=== PATIENT | female | born 1945 | race Caucasian/White ===

== ENCOUNTER 2016-07-31 14:39 | Emergency (ER) | payer MEDICARE, OTHER ==
[2016-07-31 15:54] LABS: BASOPHIL 0 % (0-2); EOSINOPHIL 0 % (0-7); HCT 38.5 % (37.0-47.0); HGB 12.7 g/dl (12.5-16.0); LYMPHOCYTE 3.4 % (15-48); MCH 31.2 pg (25.0-31.0); MCV 94.6 fL (78.0-100.0); MONOCYTE 9.7 % (0-12); MPV 8.6 fL (6.0-9.5); NEUTROPHIL 86.9 % (41-80); PLT 203 K/uL (150-400); RBC 4.07 M/uL (4.20-5.40); RDW 15.3 % (11.5-14.0); WBC 7.6 K/uL (4.0-10.5)
[2016-07-31 16:04] LABS: INR 1.06 (0.9-1.2); PROTHROMBIN TIME 13.4 SECONDS (11.7-14.0); PTT 22.8 SECONDS (23.2-31.4)
[2016-07-31 16:11] LABS: ALBUMIN 3.5 g/dL (3.4-4.8); BILIRUBIN - TOTAL 0.2 mg/dL (0.1-1.0); CREATININE 0.5 mg/dL (0.5-1.0); GLOBULIN (CALCULATION) 2.6 g/dL (2.2-4.2); POTASSIUM 4.3 mmol/L (3.5-5.1); TOTAL PROTEIN 6.1 g/dL (6.4-8.3)
[2016-07-31 16:13] LABS: CKMB 1.32 ng/mL (0.97-4.94); MYOGLOBIN 21 ng/mL (26-65); TROPONIN T < 0.010 ng/mL
== END 2016-07-31 17:40 | disposition other institution (70) ==
LOC: FER 14:39
PROVIDERS: Emergency Medicine
DX: I62.9 Nontraumatic intracranial hemorrhage, unspecified (principal); R47.89 Other speech disturbances; R29.702 NIHSS score 2; Z98.890 Other specified postprocedural states; Z86.69 Personal history of other diseases of the nervous system and sense organs; Z85.118 Personal history of other malignant neoplasm of bronchus and lung
CPT/HCPCS: 36415; 70450; 71010; 80053; 80061; 82550; 82553; 83874; 84484; 85025; 85610; 85730; 93005; J2060

== ENCOUNTER 2020-05-06 07:38 | Inpatient (IN) | payer MEDICARE, OTHER ==
[~2020-05-06 07:38] MED LIST: ALLERGY RELIEF10 M1 PO; ASPIRIN EC81 MG PO; ATIVAN0.5 MG PO; BUMETANIDE1 MG PO; DIPHENOXYLATE-1 EACH PO; DUONEB 2.5-0.5M1 AMP NEB; FIBER LAXATIVE625 MG PO; HCTZ12.5 MG PO; IMDUR 30MG TABL30 MG PO; K-DUR20 MEQ PO; LOPRESSOR50 MG PO; LOVENOX40 MG/0.4 SC; MELATONIN5 M2 PO; MICON-GUARD 2% TOP; MUCINEX 600MG600 MG PO; PANTOPRAZOLE SO40 MG PO; POTASSIUM CHLO20 ME2 PO; PRILOSEC20 MG PO; PRINIVIL20 MG PO; PULMICORT0.5 MG/2 M NEB; SYNTHROID100 MCG PO; VITAMIN D1000 UNIT PO
[2020-05-06] MEDS ORDERED: PERCOCET 5-3251 EACH PO (08:42)
--- NOTE | 2020-05-06 15:45 | NUR ---
PT REPORTS HE LIVES WITH SPOUSE AND HAS OXYGEN AND IS ASSIST WITH ADL'S PER REPORT. PLEASE ADVISE OF ANY DISCHARGE NEEDS
[2020-05-07 08:09] LABS: BASOPHIL 0.4 % (0-2); EOSINOPHIL 1.3 % (0-7); HCT 31.1 % (37.0-47.0); HGB 9.6 g/dl (12.5-16.0); MCH 30.1 pg (25.0-31.0); MCHC 30.9 g/dL (32.0-36.0); MCV 97.5 fL (78.0-100.0); MONOCYTE 9.3 % (0-12); MPV 8.8 fL (6.0-9.5); NEUTROPHIL 81.8 % (41-80); NRBC 0; PLT 169 K/uL (150-400); RBC 3.19 M/uL (4.20-5.40); RDW 14.2 % (11.5-14.0); WBC 5.6 K/uL (4.0-10.5)
[2020-05-07 08:24] LABS: BUN/CREAT RATIO (CALC) 12.7 RATIO; CREATININE 0.55 mg/dL (0.51-0.95)
--- NOTE | 2020-05-07 10:38 | NUR ---
PT ELECTED TO HAVE [facility] FOR HOME HELATH AFFILIATIONS EXPLAINED. PT HAS ROLATOR AT HOME WILL NOT QUALIFY TO HAVE WALKER PAID FOR AT THIS TIME; EXPLAINED TO PATIENT THERAPY SUGGESTS THAT SHE HAS A REGULAR WALKER SHE AGREED TO RENT FROM [employer]. ALSO ORDERED FROM [employer] IS 3:1, W/C AND WALKER FOR RENT. THEY WILL DELIVER TO HOUSE FOR PATIENT ONCE SHE IS DISCHARGED HOME. IF D/C TOMMOROROW OR OVER WEEKEND CALL [phone] OPTION 1 IF THEY D/C MONDAY CALL [phone] AND THEY WILL SCHEDULE FOR DELIVERY.
--- NOTE | 2020-05-07 10:41 | NUR ---
PT DECLINED REHAB AT THIS TIME DUE TO PATIENT GOING TO RADIATION
--- NOTE | 2020-05-07 11:11 | NUR ---
PLEASE CALL [facility] AT DISCHARGE
--- NOTE | 2020-05-07 13:54 | NUR ---
[facility] PHONE IS [phone] [facility] [employer] [place] [phone]
[2020-05-08 05:52] LABS: BASOPHIL 0.5 % (0-2); EOSINOPHIL 2.6 % (0-7); HCT 30.4 % (37.0-47.0); HGB 9.3 g/dl (12.5-16.0); LYMPHOCYTE 10.8 % (15-48); MCHC 30.6 g/dL (32.0-36.0); MCV 98.1 fL (78.0-100.0); MONOCYTE 10.5 % (0-12); MPV 9.3 fL (6.0-9.5); NEUTROPHIL 75.4 % (41-80); NRBC 0; PLT 167 K/uL (150-400); RDW 14.1 % (11.5-14.0); WBC 4.3 K/uL (4.0-10.5)
[2020-05-08 06:17] LABS: ALBUMIN 2.7 g/dL (3.4-5.0); BILIRUBIN - TOTAL 0.3 mg/dL (0.2-1.0); BUN/CREAT RATIO (CALC) 9.4 RATIO; CREATININE 0.53 mg/dL (0.51-0.95); GLOBULIN (CALCULATION) 3.3 g/dL; POTASSIUM 3.7 mmol/L (3.5-5.1)
[2020-05-09 04:47] LABS: BASOPHIL 0.5 % (0-2); EOSINOPHIL 1.6 % (0-7); HCT 28.1 % (37.0-47.0); HGB 8.9 g/dl (12.5-16.0); LYMPHOCYTE 9.1 % (15-48); MCH 30.9 pg (25.0-31.0); MCHC 31.7 g/dL (32.0-36.0); MCV 97.6 fL (78.0-100.0); MONOCYTE 10.5 % (0-12); MPV 9.5 fL (6.0-9.5); NEUTROPHIL 77.6 % (41-80); NRBC 0; PLT 156 K/uL (150-400); RBC 2.88 M/uL (4.20-5.40); RDW 13.7 % (11.5-14.0); WBC 4.4 K/uL (4.0-10.5)
[2020-05-09 05:11] LABS: CREATININE 0.53 mg/dL (0.51-0.95); POTASSIUM 3.9 mmol/L (3.5-5.1)
[2020-05-09] MEDS ORDERED: LEVAQUIN500 MG PO (09:50)
[2020-05-09] MEDS ORDERED: ONDANSETRON ODT4 MG PO (13:03)
[2020-05-09] MEDS ORDERED: TRAMADOL HCL50 MG PO (13:03)
== END 2020-05-09 13:49 | disposition home health service (06) | DRG 480 ==
LOC: FSDC 07:38 → FMS 09:10
PROVIDERS: Nurse Practitioner; ADMIT Orthopaedic Surgery
PROC: 0QH604Z Insertion of Internal Fixation Device into Right Upper Femur, Open Approach (ICD-10-PCS; principal; 2020-05-06 09:45)
DX: C79.51 Secondary malignant neoplasm of bone (principal); J18.9 Pneumonia, unspecified organism; C78.7 Secondary malignant neoplasm of liver and intrahepatic bile duct; J43.9 Emphysema, unspecified; I10 Essential (primary) hypertension; F17.200 Nicotine dependence, unspecified, uncomplicated; D64.9 Anemia, unspecified; E89.0 Postprocedural hypothyroidism; Z85.118 Personal history of other malignant neoplasm of bronchus and lung; Z99.81 Dependence on supplemental oxygen; Z85.850 Personal history of malignant neoplasm of thyroid; Z79.899 Other long term (current) drug therapy
CPT/HCPCS: 36415; 71045; 73501; 76000; 80048; 80053; 84145; 85025; 85610; 85730; 93005; 94010; 94667; 94668; 94760; 94762; 97110; 97162; 97166; 97530; 97530-GP; C1713; G0378; J0697; J0780; J1956; J2250; J2270; J2405; J2704; J3010; J7120; U0002

== ENCOUNTER 2020-05-12 10:42 | Inpatient (IN) | payer MEDICARE, OTHER ==
[~2020-05-12 10:42] MED LIST changes: +LEVAQUIN500 MG PO; +ONDANSETRON ODT4 MG PO; +PERCOCET 5-3251 EACH PO; +TRAMADOL HCL50 MG PO
[2020-05-12 13:12] LABS: BASOPHIL 0.1 % (0-2); EOSINOPHIL 0 % (0-7); HCT 29.7 % (37.0-47.0); HGB 9.2 g/dl (12.5-16.0); LYMPHOCYTE 3.1 % (15-48); MCH 29.7 pg (25.0-31.0); MCV 95.8 fL (78.0-100.0); MONOCYTE 3.5 % (0-12); MPV 10.1 fL (6.0-9.5); NRBC 3.9; PLT 135 K/uL (150-400); RDW 14.6 % (11.5-14.0); WBC 7.5 K/uL (4.0-10.5)
[2020-05-12 13:13] LABS: NEUTROPHIL 92.6 % (41-80)
[2020-05-12 13:28] LABS: INR 2.33 (0.9-1.2); PROTHROMBIN TIME 24.3 SECONDS (11.4-13.6); PTT 33.7 SECONDS (22.2-34.7)
[2020-05-12 14:03] LABS: ALBUMIN 3.3 g/dL (3.4-5.0); ALKALINE PHOSHATASE 279 U/L (46-116); ALT 2418 U/L (14-59); AST >2000 U/L (15-37); BILIRUBIN - TOTAL 1.2 mg/dL (0.2-1.0); BUN 44 mg/dL (7-18); BUN/CREAT RATIO (CALC) 63.8 RATIO; CHLORIDE 96 mmol/L (98-107); CO2 (BICARBONATE) 30 mmol/L (21-32); CREATININE 0.69 mg/dL (0.51-0.95); GLOBULIN (CALCULATION) 3.4 g/dL; GLUCOSE 95 mg/dL (74-106); LIPASE 67 U/L (73-393); POTASSIUM 4.6 mmol/L (3.5-5.1); TOTAL PROTEIN 6.7 g/dL (6.4-8.2)
[2020-05-13 12:10] LABS: INR 1.86 (0.9-1.2); PROTHROMBIN TIME 20.4 SECONDS (11.4-13.6)
[2020-05-13 12:15] LABS: BASOPHIL 0.2 % (0-2); EOSINOPHIL 0.9 % (0-7); HCT 27.8 % (37.0-47.0); HGB 8.7 g/dl (12.5-16.0); LYMPHOCYTE 4.9 % (15-48); MCH 30.6 pg (25.0-31.0); MCHC 31.3 g/dL (32.0-36.0); MCV 97.9 fL (78.0-100.0); MONOCYTE 6.5 % (0-12); MPV 10.2 fL (6.0-9.5); NEUTROPHIL 86.9 % (41-80); NRBC 7.9; PLT 128 K/uL (150-400); RBC 2.84 M/uL (4.20-5.40); RDW 15.1 % (11.5-14.0); WBC 6.3 K/uL (4.0-10.5)
[2020-05-13 12:18] LABS: ACETAMINOPHEN (TYLENOL) <2.0 ug/mL (10.0-30.0); ALBUMIN 2.8 g/dL (3.4-5.0); ALKALINE PHOSHATASE 238 U/L (46-116); ALT 1554 U/L (14-59); AST 901 U/L (15-37); BUN 28 mg/dL (7-18); BUN/CREAT RATIO (CALC) 52.8 RATIO; CHLORIDE 104 mmol/L (98-107); CO2 (BICARBONATE) 28 mmol/L (21-32); CREATININE 0.53 mg/dL (0.51-0.95); GLOBULIN (CALCULATION) 2.9 g/dL; GLUCOSE 80 mg/dL (74-106); POTASSIUM 3.7 mmol/L (3.5-5.1); TOTAL PROTEIN 5.7 g/dL (6.4-8.2)
[2020-05-14 05:07] LABS: HBSAG SCREEN Negative (Negative); HEP A AB, IGM Negative (Negative); HEP B CORE AB, IGM Negative (Negative); HEP C VIRUS AB <0.1 (0.0-0.9)
[2020-05-14 07:05] LABS: BASOPHIL 0.5 % (0-2); EOSINOPHIL 2.6 % (0-7); HCT 28.1 % (37.0-47.0); HGB 8.8 g/dl (12.5-16.0); LYMPHOCYTE 7.2 % (15-48); MCH 30.9 pg (25.0-31.0); MCHC 31.3 g/dL (32.0-36.0); MCV 98.6 fL (78.0-100.0); MONOCYTE 8.8 % (0-12); MPV 10.2 fL (6.0-9.5); NEUTROPHIL 79.1 % (41-80); NRBC 8.5; PLT 132 K/uL (150-400); RBC 2.85 M/uL (4.20-5.40); RDW 15.3 % (11.5-14.0); WBC 6.5 K/uL (4.0-10.5)
[2020-05-14 07:25] LABS: INR 1.57 (0.9-1.2); PROTHROMBIN TIME 17.8 SECONDS (11.4-13.6)
[2020-05-14 07:33] LABS: ALBUMIN 2.6 g/dL (3.4-5.0); BILIRUBIN - TOTAL 0.9 mg/dL (0.2-1.0); CREATININE 0.45 mg/dL (0.51-0.95); GLOBULIN (CALCULATION) 3.1 g/dL; TOTAL PROTEIN 5.7 g/dL (6.4-8.2)
--- NOTE | 2020-05-14 15:55 | NUR ---
05/14/20 Ms. Regalado lives in [place] with her spouse. She has 3 supportive children in close proximty to her. Ms. Regalado has home 02, rollator, 3in1, and a w/c. [facility] is current. Ms. Regalado is interested in an admission to [facility]. Ms. Regalado was informed that [facility] is only accepting patient's locally at this time. However, a message was left at [facility] stating [facility] is [facility] of [facility] and pt lives 34 [place] from [facility]. Other discharge options were discussed, [facility], [facility], or returning home with [facility]. Ms. Regalado prefers to return if [facility] will not consider her for admission.
[2020-05-15 05:56] LABS: BASOPHIL 0.4 % (0-2); EOSINOPHIL 2.1 % (0-7); HCT 28.8 % (37.0-47.0); HGB 8.9 g/dl (12.5-16.0); LYMPHOCYTE 4.5 % (15-48); MCH 30.6 pg (25.0-31.0); MCHC 30.9 g/dL (32.0-36.0); MONOCYTE 9.1 % (0-12); NEUTROPHIL 81.5 % (41-80); NRBC 9.6; PLT 155 K/uL (150-400); RBC 2.91 M/uL (4.20-5.40); RDW 15.5 % (11.5-14.0); WBC 7.5 K/uL (4.0-10.5)
[2020-05-15 05:59] LABS: INR 1.42 (0.9-1.2); PROTHROMBIN TIME 16.5 SECONDS (11.4-13.6)
[2020-05-15 06:07] LABS: ALBUMIN 2.6 g/dL (3.4-5.0); BILIRUBIN - TOTAL 0.8 mg/dL (0.2-1.0); BUN/CREAT RATIO (CALC) 25.9 RATIO; CREATININE 0.54 mg/dL (0.51-0.95); GLOBULIN (CALCULATION) 2.8 g/dL; POTASSIUM 4.2 mmol/L (3.5-5.1); TOTAL PROTEIN 5.4 g/dL (6.4-8.2)
[2020-05-15] MEDS ORDERED: URSODIOL300 MG PO (11:52)
== END 2020-05-15 14:10 | disposition home health service (06) | DRG 392 ==
LOC: FER 10:42 → FMS 16:59
PROVIDERS: Emergency Medicine; Surgery; ADMIT Internal Medicine
DX: R10.11 Right upper quadrant pain (principal); D68.9 Coagulation defect, unspecified; R79.89 Other specified abnormal findings of blood chemistry; E86.0 Dehydration; J44.9 Chronic obstructive pulmonary disease, unspecified; I10 Essential (primary) hypertension; E03.9 Hypothyroidism, unspecified; D64.9 Anemia, unspecified; Z20.822 Contact with and (suspected) exposure to COVID-19; Z85.118 Personal history of other malignant neoplasm of bronchus and lung; Z85.830 Personal history of malignant neoplasm of bone; Z85.841 Personal history of malignant neoplasm of brain; Z85.850 Personal history of malignant neoplasm of thyroid; Z99.81 Dependence on supplemental oxygen; Z92.3 Personal history of irradiation; Z92.21 Personal history of antineoplastic chemotherapy; Z90.710 Acquired absence of both cervix and uterus; Z98.42 Cataract extraction status, left eye; Z98.890 Other specified postprocedural states; Z87.891 Personal history of nicotine dependence; Z79.899 Other long term (current) drug therapy
CPT/HCPCS: 36415; 73552; 74022; 74183; 78226; 80053; 80074; 82248; 83690; 85025; 85610; 85730; 94010; 97162; 97166; 97530-GP; 97535; A9537; A9579; G0480; J2270; J2405; J2543; J7030; Q9967; U0002

== ENCOUNTER 2020-06-27 14:30 | Emergency (ER) | payer MEDICARE, OTHER ==
[~2020-06-27 14:30] MED LIST changes: +URSODIOL300 MG PO
[2020-06-27 15:31] LABS: BASOPHIL 0.3 % (0-2); HCT 36.9 % (37.0-47.0); HGB 11.5 g/dl (12.5-16.0); LYMPHOCYTE 12.7 % (15-48); MCH 30.7 pg (25.0-31.0); MCHC 31.2 g/dL (32.0-36.0); MCV 98.7 fL (78.0-100.0); MONOCYTE 9.8 % (0-12); MPV 9.1 fL (6.0-9.5); NEUTROPHIL 75.9 % (41-80); NRBC 0; PLT 227 K/uL (150-400); RBC 3.74 M/uL (4.20-5.40); RDW 16.5 % (11.5-14.0); WBC 5.8 K/uL (4.0-10.5)
[2020-06-27 15:46] LABS: ALBUMIN 3.2 g/dL (3.4-5.0); BILIRUBIN - TOTAL 0.4 mg/dL (0.2-1.0); BUN/CREAT RATIO (CALC) 32.8 RATIO; CREATININE 0.58 mg/dL (0.51-0.95); GLOBULIN (CALCULATION) 3.8 g/dL; POTASSIUM 3.3 mmol/L (3.5-5.1)
[2020-06-27 15:48] LABS: INR 1.27 (0.9-1.2); PROTHROMBIN TIME 15.1 SECONDS (11.4-13.6); PTT 32.5 SECONDS (22.2-34.7)
[2020-06-27] MEDS ORDERED: PREDNISONE 20MG20 MG PO (19:08)
[2020-06-27] MEDS ORDERED: LOMOTIL 2.5-0.1 EACH PO (19:15)
== END 2020-06-27 19:25 | disposition home or self-care (01) ==
LOC: FER 14:30
PROVIDERS: Emergency Medicine
DX: R07.89 Other chest pain (principal); Z87.891 Personal history of nicotine dependence; Z85.118 Personal history of other malignant neoplasm of bronchus and lung; Z85.830 Personal history of malignant neoplasm of bone
CPT/HCPCS: 36415; 71045; 71275; 80053; 84484; 85025; 85610; 85730; 93005; J1642; J7030; Q9967